=== PATIENT | female | born 1955 | race Caucasian/White ===

== ENCOUNTER 2016-09-01 06:13 | Emergency (ER) | payer MEDICARE | END 2016-09-01 08:09 | disposition home or self-care (01) | LOC: ER1 06:13 | DX: J20.9 Acute bronchitis, unspecified (principal); I25.10 Atherosclerotic heart disease of native coronary artery without angina pectoris; I10 Essential (primary) hypertension; Z88.0 Allergy status to penicillin; Z88.1 Allergy status to other antibiotic agents; Z88.2 Allergy status to sulfonamides | CPT/HCPCS: 71020; 99283 ==

== ENCOUNTER → 2021-01-25 | Outpatient (CLI) | payer MEDICARE, OTHER ==
[~2021-01-25] MED LIST: CATAPRES0.3 MG PO; CLEOCIN HCL300 MG PO; LIPITOR TAB 2020 MG PO; METOPROLOL TART25 MG PO; NORCO 5-325 TA1 EACH PO; NORVASC10 MG PO; PROTONIX40 MG PO; ZESTRIL40 MG PO
== END ==
LOC: ECHO 01-19 11:45
DX: I11.0 Hypertensive heart disease with heart failure (principal); I50.22 Chronic systolic (congestive) heart failure; I25.2 Old myocardial infarction
CPT/HCPCS: ECHO; 93306

== ENCOUNTER → 2021-02-20 | Outpatient (CLI) | payer MEDICARE, OTHER | LOC: EXRD 10:49 | DX: I27.20 Pulmonary hypertension, unspecified (principal); R06.02 Shortness of breath; R91.8 Other nonspecific abnormal finding of lung field | CPT/HCPCS: 71045 ==